=== PATIENT | male | born 1960 | race Two or more races ===

== ENCOUNTER 2018-12-31 00:27 | Inpatient (IN) | payer BC ==
[~2018-12-31] VITALS: Ht 170.2 cm; Wt 90.2 kg
[2018-12-31] MEDS ORDERED: HYDR25TA6 PO (04:45)
[2018-12-31] MEDS ORDERED: LOSA50TA14 PO (04:48)
[2018-12-31] MEDS ORDERED: LEVO25TA PO (04:48)
[2018-12-31 04:49] VITALS: Ht 170.2 cm; Wt 90.2 kg
[2018-12-31 05:00] VITALS: BP 145/78; PULSE 87; RESP 20
[2018-12-31] MEDS: SOD CHLORIDE 0.9% 1,000 ML IV SCH ×3 (06:55→23:31)
[2018-12-31] MEDS: PANTOPRAZOLE (EC) 40 MG TAB PO SCH (06:57)
[2018-12-31] MEDS: LEVOTHYROXINE 25 MCG TAB PO SCH ×2 (07:00→09:01)
[2018-12-31 07:45] VITALS: BP 119/67; PULSE 71; RESP 20
[2018-12-31] MEDS ORDERED: LOSARTAN 50 MG TAB PO SCH (09:00)
[2018-12-31 13:16] VITALS: BP 116/63; PULSE 97; RESP 20
[2018-12-31] MEDS: ACETAMINOPHEN 325 MG TAB PO PRN ×2 (15:07→22:10)
--- NOTE | 2018-12-31 16:43 | QN ---
Documentation Comment seen and examined MARLY DONAHUE MD Dec 31, 2018 16:43
[2018-12-31] MEDS ORDERED: traMADol 50 MG TAB PO PRN (17:00)
[2018-12-31] MEDS ORDERED: hydrALAzine 20 MG INJ IV PRN (17:00)
--- NOTE | 2018-12-31 17:41 | HP ---
DATE OF ADMISSION: 12/31/2018 REASON FOR ADMISSION: Transferred from [facility] secondary to OZIEL. HISTORY OF PRESENTING ILLNESS: This is a 58-year-old male with past medical history of hypertension, history of hypothyroidism, history of TURP, who presented to the emergency department at [facility] on 12/30/2018 secondary to complaining of cough, feeling weak, muscle pain for the last few weeks. According to the patient, his history dates back in 11/13/2018. Since then, he was having some fever, sore throat, body aches. He thought he had some viral illness. He was taking Motrin 400 mg q.6 hours. He took that for 2 weeks. After that, his symptoms subsided. He thought that he got better, but then he started having symptoms again of fever, cold, sore throat. He started taking qlcl-rdx-vbeixnq cough decongestants. Then, it was a setback after he found out that one of his friends was diagnosed with Hodgkin's lymphoma. He started fasting for spiritual reason for about 1 week. He said that he was having adequate water intake, but he was not eating anything at all. However, the patient said that when his fasting was done he felt that he was having body aches, muscle aches, throat pain, which made him come to the emergency department at [place] for further evaluation. The patient denied urinary complaints. The patient denied any headache, any chest pain, any shortness of breath currently. Denied any hematuria. Denies any BPH symptoms. On arrival to ED at [facility], temperature 36.6, blood pressure 136/86. The patient was found to have a UA that showed trace ketones. Influenza A and B were negative. His white count was 2.7, hemoglobin 14.4, platelet count 134. He also had glucose of 115, sodium 130, BUN of 14, creatinine 1.66. ALT of 97, AST of 68, alkaline phosphatase 128, bilirubin 1.3. CK 81. The patient was transferred due to insurance reasons. PAST MEDICAL HISTORY: 1. Hypertension. 2. Hypothyroidism. ALLERGIES: NONE. MEDICATIONS TAKING AT HOME: 1. Hydrochlorothiazide 25. 2. Losartan 50. 3. Levothyroxine 25. PAST SURGICAL HISTORY: Significant for appendectomy, TURP. SOCIAL HISTORY: The patient is an ex-smoker. The patient occasionally drinks alcohol, also uses pot occasionally. 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 FAMILY HISTORY: Noncontributory. REVIEW OF SYSTEMS: The patient had complained of generalized body ache, muscle aches, which had been somewhat improving, had cough over the last 2 months which had been improving. Denied any headache, any chest pain, any shortness of breath. Denies any BPH symptoms, any hematuria. PHYSICAL EXAMINATION: VITAL SIGNS: Currently temperature 97.9, pulse 97, respirations 20, blood pressure 116/63 Gen: Awake,alert and oriented Neck: supple , no meningsmus signs CVS: Regular rate and rthym Resp: CTAB Abdomen: soft, non tender Ext no edema vitiligo. tone of muscles and strength normal LABORATORY DATA: White count 2.1, hemoglobin 13.6, platelet count 131. BUN of 22, creatinine 1.51, glucose 98, calcium 8.9. ASSESSMENT AND PLAN: This is a 58-year-old male who presented with: 1. Acute kidney injury, unknown baseline. The patient denies any history of prior kidney disease in the past. The patient was taking Advil for almost 2 weeks plus starvation plus was taking hydrochlorothiazide and losartan at home. It could be secondary to prerenal/renal. 2. Leukopenia and thrombocytopenia, rule out viral syndrome. vs Autoimmune vs malignancy 3. Abnormal liver function tests with elevated total bilirubin, ALT, AST and alkaline phosphatase, could be secondary to viral syndrome. 4. Hypertension. 5. Hypothyroidism. PLAN: At this period of time, the patient is admitted to med-surg. CK levels were checked that were normal. We will also check for aldolase, UA. We will also check for hepatitis and HIV. We will also call hematology consultation. Rest of the treatment will depend on the patient's hospitalization course. Dictated By: MARLY KLEIN/EVAN Conf#: [id number] DID#: [id number] CC: ARNOLD GONZALEZ MD;*EndCC* MTDD
[2018-12-31 19:42] VITALS: BP 118/71; PULSE 88; RESP 18
[2019-01-01 01:31] VITALS: BP 118/67; PULSE 80; RESP 18
[2019-01-01] MEDS: PANTOPRAZOLE (EC) 40 MG TAB PO SCH (06:37)
[2019-01-01] MEDS: LEVOTHYROXINE 25 MCG TAB PO SCH (06:37)
[2019-01-01 07:47] VITALS: BP 120/73; PULSE 98; RESP 16
[2019-01-01] MEDS: SOD CHLORIDE 0.9% 1,000 ML IV SCH ×3 (09:10→22:30)
[2019-01-01] MEDS: ACETAMINOPHEN 325 MG TAB PO PRN ×2 (11:06→20:32)
--- NOTE | 2019-01-01 13:51 | CONS ---
Assessment/Plan Assessment/Plan Hospital Course (Demo Recall) * 58 yo who is relatively healthy who we are asked to see for leukopenia and thormbocytopenia * -he has vitiligo and the leukopenia and thrombocytopenia may be an autoimmune related process * check ASMITA, RF, B12, iron studies * check SPEP * check flow cytometry * -neutropenic precautions * request outpt records cbc for comparison * Hep B/C HIV negative * consideration of bone marrow if above w/u negative Consultation Date/Type/Reason Admit Date/Time Dec 31, 2018 at 04:24 Date/Time of Note DATE: 01/01/19 TIME: 13:48 Hx of Present Illness 58-year-old male with past medical history of hypertension, history of hypothyroidism, history of TURP, came to ER at [facility] with cough and weakness. Of note he was taking large amounts of Motrin. He thought he had some viral illness. He was taking Motrin 400 mg q.6 hours. He took that for 2 weeks. After that, his symptoms subsided. He rece'nuzhat some bad news and started fasting for spiritual reasons for about 1 week. He said that he was having adequate water intake, but he was not eating anything at all. He started having body aches and sore throat and went to [facility] ER. Influenza A and B were negative. His white count was 2.7, hemoglobin 14.4, platelet count 134. He also had glucose of 115, sodium 130, BUN of 14, creatinine 1.66. ALT of 97, AST of 68, alkaline phosphatase 128, bilirubin 1.3. CK 81. The patient was transferred due to insurance reasons and is being seen by Dr Mistry. We are asked to see him for leukopenia and thrombocytopenia. We carey not have outpt labs for comparison. Pt believes his counts were basically "normal" He also has vitiligo which he has since age 5 Constitutional: no complaints, improved Eyes: no complaints Respiratory: no complaints Cardiovascular: no complaints Gastrointestinal: no complaints Genitourinary: no complaints Musculoskeletal: no complaints Skin: skin lesions Neurologic: no complaints Endocrine: no complaints Lymphatic: no complaints Psychological: no complaints, nl mood/affect Immunologic: no complaints Past Medical History Home Meds Reported Medications Losartan Potassium* (Losartan Potassium*) 50 Mg Tablet, 50 MG PO DAILY, TAB 12/31/18 Levothyroxine Sodium* (Synthroid*) 25 Mcg Tablet, 25 MCG PO BEFORE BREAKFAST, #30 TAB 12/31/18 Hydrochlorothiazide* (Hydrochlorothiazide*) 25 Mg Tab, 25 MG PO DAILY, #30 TAB 12/31/18 Medications Current Medications Sodium Chloride 1,000 ml @ 75 mls/hr [id number] IV Last administered on 12/31/18at 23:31; Admin Dose 75 MLS/HR; Start 12/31/18 at 06:30 Pantoprazole (Protonix Tab) 40 mg DAILY@06 PO Last administered on 01/01/19at 06:37; Admin Dose 40 MG; Start 12/31/18 at 06:00 Acetaminophen (Tylenol Tab) 650 mg Q6H PRN PO MILD PAIN(1-3)OR ELEVATED TEMP Last administered on 01/01/19at 11:06; Admin Dose 650 MG; Start 12/31/18 at 06:30 Levothyroxine Sodium (Synthroid) 25 mcg BEFORE BREAKFAST PO Last administered on 01/01/19at 06:37; Admin Dose 25 MCG; Start 12/31/18 at 07:00 Tramadol HCl (Ultram) 50 mg Q6H PRN PO MODERATE PAIN LEVEL 4-6; Start 12/31/18 at 17:00 Hydralazine HCl (Apresoline) 5 mg Q8H PRN IV SBP>160; Start 12/31/18 at 17:00 Allergies: Coded Allergies: No Known Allergy (Unverified , 12/31/18) Social History Smoking Status: Former smoker Exam/Review of Systems Exam Vitals Vital Signs Date Temp Pulse Resp B/P (MAP) Pulse Ox O2 O2 Flow FiO2 Time Delivery Rate 01/01/19 98.8 98 16 120/73 99 07:47 (89) 12/31/18 Room Air 05:00 Intake and Output 12/31/18 12/31/18 01/01/19 1515:00 23:00 07:00 IntakeIntake Total 960 ml 450 ml 950 ml OutputOutput Total 350 ml BalanceBalance 610 ml 450 ml 950 ml Constitutional: alert, oriented, well developed Psych: no complaints, nl mood/affect Head: normocephalic, atraumatic Eyes: nl conjunctiva, EOMI, nl lids, nl sclera, PERRL Skin: other (vitiligo) Results Result Diagram: 12/31/18 0718 01/01/19 0451 Results 24hrs Laboratory Tests Test 12/31/18 17:23 01/01/19 04:51 01/01/19 08:45 Erythrocyte Sedimentation Rate 26 H Sodium Level 137 Potassium Level 4.0 Chloride Level 101 Carbon Dioxide Level 28 Anion Gap 8 Blood Urea Nitrogen 17 Creatinine 0.94 Est Glomerular Filtrat Rate mL/min > 60 Glucose Level 111 Calcium Level 8.7 Urine Color YELLOW Urine Clarity CLEAR Urine pH 6.0 Urine Specific [place] 1.011 Urine Ketones NEGATIVE Urine Nitrite NEGATIVE Urine Bilirubin NEGATIVE Urine Urobilinogen NEGATIVE Urine Leukocyte Esterase NEGATIVE Urine Hemoglobin NEGATIVE Urine Glucose 1+ H Urine Total Protein NEGATIVE Urine Opiates Screen Negative Urine Barbiturates Negative Urine Amphetamines Screen Negative Urine Benzodiazepines Screen Negative Urine Cocaine Screen Negative Urine Cannabinoids Negative Medications Medication Current Medications Sodium Chloride 1,000 ml @ 75 mls/hr [id number] IV Last administered on 12/31/18at 23:31; Admin Dose 75 MLS/HR; Start 12/31/18 at 06:30 Pantoprazole (Protonix Tab) 40 mg DAILY@06 PO Last administered on 01/01/19at 06:37; Admin Dose 40 MG; Start 12/31/18 at 06:00 Acetaminophen (Tylenol Tab) 650 mg Q6H PRN PO MILD PAIN(1-3)OR ELEVATED TEMP Last administered on 01/01/19at 11:06; Admin Dose 650 MG; Start 12/31/18 at 06:30 Levothyroxine Sodium (Synthroid) 25 mcg BEFORE BREAKFAST PO Last administered on 01/01/19at 06:37; Admin Dose 25 MCG; Start 12/31/18 at 07:00 Tramadol HCl (Ultram) 50 mg Q6H PRN PO MODERATE PAIN LEVEL 4-6; Start 12/31/18 at 17:00 Hydralazine HCl (Apresoline) 5 mg Q8H PRN IV SBP>160; Start 12/31/18 at 17:00 ROSSY MURO 20, 2019 13:51
[2019-01-01 14:22] VITALS: BP 132/79; PULSE 99; RESP 16
--- NOTE | 2019-01-01 14:26 | PN ---
Date/Time of Note Date/Time of Note DATE: 01/01/19 TIME: 14:20 Assessment/Plan VTE Prophylaxis Risk score (from Ns)>0 risk: 1 SCD applied (from Ns): No SCD contraindicated: low risk/ambulating Pharmacological prophylaxis: NA/contraindicated Pharm contraindication: low risk/ambulating Lines/Catheters IV [facility]from [facility] Peripheral IV Urinary Cath still in place: No Assessment/Plan Assessment/Plan ASSESSMENT AND PLAN: This is a 58-year-old male who presented with: 1. Acute kidney injury, unknown baseline. The patient denies any history of prior kidney disease in the past. The patient was taking Advil for almost 2 weeks plus starvation plus was taking hydrochlorothiazide and losartan at home. It could be secondary to prerenal/renal. Likely prerenal resolved 2. Leukopenia and thrombocytopenia, rule out viral syndrome. Versus autoimmune versus malignancy 3. Abnormal liver function tests with elevated total bilirubin, ALT, AST and alkaline phosphatase, could be secondary to viral syndrome. 4. Hypertension. 5. Hypothyroidism. PLAN -Abdominal ultrasound shows some splenomegaly -EBV influenza a and B and sent -HIV/hepatitis panel negative -Kidney function is back to baseline -Follow-up with rheumatological workup -Pending heme consult - CW Iv Fluids Result Diagram: 12/31/18 0718 01/01/19 0451 Results 24hrs Laboratory Tests Test 12/31/18 17:23 01/01/19 04:51 01/01/19 08:45 Erythrocyte Sedimentation Rate 26 H Sodium Level 137 Potassium Level 4.0 Chloride Level 101 Carbon Dioxide Level 28 Anion Gap 8 Blood Urea Nitrogen 17 Creatinine 0.94 Est Glomerular Filtrat Rate mL/min > 60 Glucose Level 111 Calcium Level 8.7 Urine Color YELLOW Urine Clarity CLEAR Urine pH 6.0 Urine Specific Stewart 1.011 Urine Ketones NEGATIVE Urine Nitrite NEGATIVE Urine Bilirubin NEGATIVE Urine Urobilinogen NEGATIVE Urine Leukocyte Esterase NEGATIVE Urine Hemoglobin NEGATIVE Urine Glucose 1+ H Urine Total Protein NEGATIVE Urine Opiates Screen Negative Urine Barbiturates Negative Urine Amphetamines Screen Negative Urine Benzodiazepines Screen Negative Urine Cocaine Screen Negative Urine Cannabinoids Negative Subjective 24 Hr Interval Summary Free Text/Dictation Patient complaining of headaches. he did complain of pain in the bilateral lower extremities Exam/Review of Systems Exam Vitals Vital Signs Date Temp Pulse Resp B/P (MAP) Pulse Ox O2 O2 Flow FiO2 Time Delivery Rate 01/01/19 98.8 98 16 120/73 99 07:47 (89) 12/31/18 Room Air 05:00 Intake and Output 12/31/18 12/31/18 01/01/19 1515:00 23:00 07:00 IntakeIntake Total 960 ml 450 ml 950 ml OutputOutput Total 350 ml BalanceBalance 610 ml 450 ml 950 ml Exam General patient is awake alert oriented Neck supple no JVD, no mengeal signs Lungs clear to auscultate bilaterally Heart regular rate rhythm no murmur rub or gallop Abdomen soft nontender nondistended Results Results 24hrs Laboratory Tests Test 12/31/18 17:23 01/01/19 04:51 01/01/19 08:45 Erythrocyte Sedimentation Rate 26 H Sodium Level 137 Potassium Level 4.0 Chloride Level 101 Carbon Dioxide Level 28 Anion Gap 8 Blood Urea Nitrogen 17 Creatinine 0.94 Est Glomerular Filtrat Rate mL/min > 60 Glucose Level 111 Calcium Level 8.7 Urine Color YELLOW Urine Clarity CLEAR Urine pH 6.0 Urine Specific Stewart 1.011 Urine Ketones NEGATIVE Urine Nitrite NEGATIVE Urine Bilirubin NEGATIVE Urine Urobilinogen NEGATIVE Urine Leukocyte Esterase NEGATIVE Urine Hemoglobin NEGATIVE Urine Glucose 1+ H Urine Total Protein NEGATIVE Urine Opiates Screen Negative Urine Barbiturates Negative Urine Amphetamines Screen Negative Urine Benzodiazepines Screen Negative Urine Cocaine Screen Negative Urine Cannabinoids Negative Medications Medication Current Medications Sodium Chloride 1,000 ml @ 75 mls/hr [id number] IV Last administered on 12/31/18at 23:31; Admin Dose 75 MLS/HR; Start 12/31/18 at 06:30 Pantoprazole (Protonix Tab) 40 mg DAILY@06 PO Last administered on 01/01/19at 06:37; Admin Dose 40 MG; Start 12/31/18 at 06:00 Acetaminophen (Tylenol Tab) 650 mg Q6H PRN PO MILD PAIN(1-3)OR ELEVATED TEMP Last administered on 01/01/19at 11:06; Admin Dose 650 MG; Start 12/31/18 at 06:30 Levothyroxine Sodium (Synthroid) 25 mcg BEFORE BREAKFAST PO Last administered on 01/01/19at 06:37; Admin Dose 25 MCG; Start 12/31/18 at 07:00 Tramadol HCl (Ultram) 50 mg Q6H PRN PO MODERATE PAIN LEVEL 4-6; Start 12/31/18 at 17:00 Hydralazine HCl (Apresoline) 5 mg Q8H PRN IV SBP>160; Start 12/31/18 at 17:00 MARLY DONAHUE MD Jan 01, 2019 14:26
[2019-01-01 19:51] VITALS: BP 132/76; PULSE 94; RESP 18
[2019-01-02 01:12] VITALS: BP 115/65; PULSE 91; RESP 18
[2019-01-02] MEDS: LEVOTHYROXINE 25 MCG TAB PO SCH (06:19)
[2019-01-02] MEDS: PANTOPRAZOLE (EC) 40 MG TAB PO SCH (06:20)
[2019-01-02] MEDS: SOD CHLORIDE 0.9% 1,000 ML IV SCH (06:21)
[2019-01-02 07:46] VITALS: BP 125/65; PULSE 74; RESP 18
[2019-01-02] MEDS: ACETAMINOPHEN 325 MG TAB PO PRN (12:15)
[2019-01-02 13:04] VITALS: BP 108/64; PULSE 87; RESP 18
--- NOTE | 2019-01-02 13:33 | CONS ---
Assessment/Plan Assessment/Plan Hospital Course (Demo Recall) #Pancytopenia -patients CBC appears to be improving -vitamin b12 is low at 209 which may be a contributing factor to the pancytopenia. will start Vitamin b12 1000mcg q day x 7 days then q week x 1 mo then q month there after -start folic acid 1 mg q day -pt is noted to have an elevated ESR AND CRP which may be from an underlying viral illness. this may also be a contributing factor to his pancytopenia -HIV and Hepatitis panel are negative -need to follow up SPEP, ASMITA, RF, FLow cytometry -iron studies are ok #OZIEL -Cr now normal. may be from excessive motron use #Transaminitis -maybe from viral syndrome. continue to monitor #HTN -continue current management Thank you for the opportunity to participate in this patients care A total of 40 minutes of face to face time was spent speaking with the patient, of which greater than 50% was spent in counseling and coordination of care and the detailed question and answer session. Consultation Date/Type/Reason Admit Date/Time Dec 31, 2018 at 04:24 Initial Consult Date 01/02/19 Type of Consult hematology Reason for Consultation pancytopenia Requesting Provider: MARLY DONAHUE MD Date/Time of Note DATE: 01/02/19 TIME: 13:26 24 HR Interval Summary Free Text/Dictation no fevers overnight. platelets and WBC are better today Exam/Review of Systems Exam Vitals Vital Signs Date Temp Pulse Resp B/P (MAP) Pulse Ox O2 O2 Flow FiO2 Time Delivery Rate 01/02/19 98.9 87 18 108/64 99 Room Air 13:04 (79) Intake and Output 01/01/19 01/01/19 01/02/19 1515:00 23:00 07:00 IntakeIntake Total 1590 ml 720 ml 800 ml BalanceBalance 1590 ml 720 ml 800 ml Constitutional: alert, oriented Psych: no complaints Head: normocephalic Eyes: nl conjunctiva ENMT: nl external ears & nose Neck: supple Respiratory: clear to auscultation Cardiovascular: regular rate and rhythm Gastrointestinal: soft Musculoskeletal: nl extremities to inspection Extremities: normal pulses 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 Skin: nl turgor Results Result Diagram: 01/02/19 0434 01/02/19 0438 Results 24hrs Laboratory Tests Test 01/01/19 14:31 01/02/19 04:34 01/02/19 04:38 Iron Level 62 Total Iron Binding Capacity 322 Percent Iron Saturation 19 L Ferritin 86.5 Vitamin B12 Level 209 L Folate 10.1 White Blood Count 2.6 #L Red Blood Count 4.03 L Hemoglobin 11.9 L Hematocrit 35.6 L Mean Corpuscular Volume 88.3 Mean Corpuscular Hemoglobin 29.5 Mean Corpuscular Hemoglobin Concent 33.4 Red Cell Distribution Width 12.6 Platelet Count 152 Mean Platelet Volume 10.6 H Immature Granulocytes % 0.800 H Neutrophils % 54.3 Lymphocytes % 33.6 Monocytes % 10.5 Eosinophils % 0.4 Basophils % 0.4 Nucleated Red Blood Cells % 0.0 Immature Granulocytes # 0.020 Neutrophils # 1.4 L Lymphocytes # 0.9 Monocytes # 0.3 Eosinophils # 0.0 Basophils # 0.0 Nucleated Red Blood Cells # 0.0 Sodium Level 139 Potassium Level 4.2 Chloride Level 107 Carbon Dioxide Level 26 Anion Gap 6 Blood Urea Nitrogen 16 Creatinine 0.97 Est Glomerular Filtrat Rate mL/min > 60 Glucose Level 99 Calcium Level 8.8 Total Bilirubin 0.5 Direct Bilirubin 0.00 Indirect Bilirubin 0.5 Aspartate Amino Transf (AST/SGOT) 48 H Alanine Aminotransferase (ALT/SGPT) 86 H Alkaline Phosphatase 125 H Total Protein 6.2 Albumin 3.3 Globulin 2.90 Albumin/Globulin Ratio 1.13 Medications Medication Current Medications Sodium Chloride 1,000 ml @ 75 mls/hr [id number] IV Last administered on 01/02/19at 06:21; Admin Dose 75 MLS/HR; Start 12/31/18 at 06:30 Pantoprazole (Protonix Tab) 40 mg DAILY@06 PO Last administered on 01/02/19at 06:20; Admin Dose 40 MG; Start 12/31/18 at 06:00 Acetaminophen (Tylenol Tab) 650 mg Q6H PRN PO MILD PAIN(1-3)OR ELEVATED TEMP Last administered on 01/02/19at 12:15; Admin Dose 650 MG; Start 12/31/18 at 06:30 Levothyroxine Sodium (Synthroid) 25 mcg BEFORE BREAKFAST PO Last administered on 01/02/19at 06:19; Admin Dose 25 MCG; Start 12/31/18 at 07:00 Tramadol HCl (Ultram) 50 mg Q6H PRN PO MODERATE PAIN LEVEL 4-6; Start 12/31/18 at 17:00 Hydralazine HCl (Apresoline) 5 mg Q8H PRN IV SBP>160; Start 12/31/18 at 17:00 DANIEL PEDERSON M.D. Jan 02, 2019 13:33
[2019-01-02] MEDS ORDERED: CYAN100080 PO (14:18)
--- NOTE | 2019-01-02 14:18 | PDOCDIS ---
Discharge Instructions DIAGNOSIS Discharge Diagnosis Possible viral syndrome. Leukopenia thrombocytopenia b12 def CONDITION [id number] Patient Condition: Rquia0z Fair HOME CARE INSTRUCTIONS: [id number] Diet Instructions: [id number] Low Fat /Cholesterol ACTIVITY: [id number] Activity Restrictions: [id number] Slowly Increase Activity Rest between Activity Avoid heavy lifting FOLLOW UP/APPOINTMENTS Follow-up Plan Follow-up with the PCP 1-2 weeks f[address] up with Dr. Singleton in 2-3 weeks MARLY DONAHUE MD Jan 02, 2019 14:18
--- NOTE | 2019-01-02 15:42 | CONS ---
DATE OF ADMISSION: 12/31/2018 DATE OF CONSULTATION: TYPE OF CONSULTATION: Rheumatology. REQUESTING PHYSICIAN: Catie Mistry MD REASON FOR CONSULT: Myalgias, muscle pain. HISTORY OF PRESENT ILLNESS: The patient is a 58-year-old male with history of hypertension, hypothyr oidism, history of TURP, who came to the emergency room at [facility] with a history o f cough and weakness. He said his initial symptoms flu-like symptoms started about a month and a andie f prior to admission and he took some ummh-zdh-iqewinz medications and everything resolved and then a ll of a sudden, it returned with robust fever and bodyaches. He had fasted for a week, only drinking water from sunrise to sunset and he felt that symptoms then worsened. He became weaker with a gener al dull achiness and burning pain, feeling lightheaded with a headache. He said he was taking adequa te water during the fasting period but not really eating. When he presented at [facility] ER, influenza A and B were negative. His white count however was 2.7, hemoglobin 14.4 and plate let count of 134,000. Also, glucose was normal. He was hyponatremic at sodium of 130, BUN 14, creat inine 1.66, ALT of 97, AST 68, alkaline phosphatase 128, bilirubin 1.3, CK was 81 of note which is no rmal. The patient was transferred to [facility] due to insurance reasons on 12/31/2018 and also hematology was consulted on the patient yesterday. We do not have any previous labs for compari son, although the patient states he thinks that his labs were previously normal. PAST MEDICAL HISTORY: As stated above, hypertension, history of TURP and hypothyroidism. ALLERGIES: NO KNOWN DRUG ALLERGIES. SOCIAL HISTORY: Former smoker. He does smoke some pot. He does drink moderate amount of alcohol. MEDICATIONS: Currently include: 1. Tramadol p.r.n. 2. Synthroid 25 mcg. 3. Tylenol p.r.n. PHYSICAL EXAMINATION: VITAL SIGNS: Temperature 98.9, pulse 87, respirations 18, BP 108/64, pulse ox 99 on room air. GENERAL: Alert and oriented, pleasant male. HEENT: NC/AT. Extraocular movements are intact. No oral lesions. NECK: Supple. No JVD. LUNGS: Clear to auscultation bilaterally. HEART: Regular rate and rhythm. ABDOMEN: Soft, nontender, nondistended. SKIN: He does have a diffuse vitiligo. MUSCULOSKELETAL: No joint effusion, no joint pain. All joints with normal range of motion and intac t. LABORATORY VALUES: White count 2.6, hemoglobin 11.9, hematocrit 35.6, platelet count 152. ESR is 26 . Sodium 139, potassium 4.2, chloride 107, bicarbonate 26, BUN 16, creatinine 0.97, glucose 99, calc ium 8.8. Ferritin is 86.5. Total bilirubin 0.5, direct bilirubin 0, indirect bilirubin 0.5, AST 48, ALT 86, alkaline phosphatase 125. C-reactive protein is 2. Total protein 6.2, albumin 3.3, globuli n 2.9. B12 is 209. Folate 10.1. Hepatitis A IgM antibody nonreactive, hep B surface antigen negati ve, hep B core negative, hep C antibody negative, HIV 1 and 2 antibody negative. DIAGNOSTIC DATA: Chest x-ray: Within normal limits, negative. Abdominal ultrasound shows borderlin e splenomegaly without focal splenic lesions, contracted gallbladder; otherwise unremarkable liver, p ancreas and kidneys, no evidence of aneurysm involving proximal mid abdominal aorta. IMPRESSION AND PLAN: This is a 58-year-old male with history of hypertension, hypothyroidism and TUR P, presenting with generalized myalgias and more significantly somewhat of pancytopenia with persiste nt leukopenia and anemia of unknown etiology. Hematology is following the patient and some lab work was sent including an ASMITA and rheumatoid factor as well as other labs that are pertaining to hematolo gy including protein electrophoresis, Phyllis-Villarreal and aldolase as the patient also has elevated AST and ALT. 1. Pancytopenia unlikely related to autoimmune diseases as the ESR is low. Vitiligo is not really a ssociated with other autoimmune diseases. It does generally occur in isolation as autoimmune disease is only skin deep. However, we will follow the labs that have been sent. 2. Elevated LFTs. I agree with aldolase and possibly GI consult if necessary. However, the patient probably needs screening test of colonoscopy and endoscopy as an outpatient. I would like to thank Dr. Mistry for having me participate in this patient's care. Please do not hes itate to call with further questions or concerns. Dictated By: KAVITA SHEPARD/EVAN Conf#: [id number] DID#: [id number] CC: PRANAY GILLIS MD; ARNOLD GONZALEZ MD;*End*
--- NOTE | 2019-01-03 03:08 | DS ---
DATE OF ADMISSION: 12/31/2018 DATE OF DISCHARGE: 01/02/2019 HISTORY OF PRESENT ILLNESS AND HOSPITAL COURSE: This is a 58-year-old male with a past medical histo ry of hypertension and hypothyroidism, who presented to emergency department [facility] to complaint of a cough, feeling weak, and muscle pain for the last few weeks. According to th e patient, on November 13, 2018, he has had fever, sore throat, and body aches. He thought he had michael e viral illness and took Motrin around the clock and took it for a few weeks. The symptoms subsided. He thought it is getting better, then he started having symptoms again, however was taking over-the -counter decongestants. His friend was diagnosed with cancer and he was fasting for 1 week. He did not have water intake. He denied any urinary complaints. He came to the emergency department at [facility] and was found to have UA that showed straight ketones. Influenza A and B were negat krzysztof. White count was 2.7, hemoglobin 14.4, platelet count 134, BUN of 14, creatinine 1.6, ALT of 97, AST 68, alkaline phosphatase 128, bilirubin 1.3, CK levels 81. He was transferred due to insurance reasons. The patient had a UA that was also negative. The patient was treated with IV hydration. T he hydrochlorothiazide and Losartan was also held. The patient was also found to be leukopenic and t hrombocytopenic. White count was 2.1, platelet count was 131. U-tox was checked that was negative. The patient also had hepatitis panel checked, HIV checked that was negative. ASMITA, rheumatoid factor , SPEP, vitamin B12, iron were sent. The patient was seen by hematology consultation and recommendat ions were followed. The patient was also noted to be Vitamin B12 deficient and was started on Vitami n B12 p.o. and also folic acid. The patient was also seen by rheumatology consultation. Currently, the patient is feeling much better. Creatinine improved to baseline at 0.97. The patient is feeling much better and is stable to be discharged home. The patient will follow up with Dr. Singleton in 2 to 3 weeks for the followup on the labs. FINAL DISCHARGE DIAGNOSES: 1. Acute kidney injury, likely secondary to prerenal dehydration. NSAIDs with the use of hydrochlor othiazide and losartan. 2. Pancytopenia. 3. Need to follow up with SPEP, ASMITA, rheumatoid factor, flow cytometry, HIV, hepatitis panel negativ e. 4. Transaminitis, may be from viral syndrome. 5. Hypertension. DISCHARGE CONDITION: Stable. DISCHARGE DIET: Regular diet. DISCHARGE MEDICATIONS: 1. Vitamin B12 at 1000 mcg daily for 7 days, then q. weekly for 1 month, then q. monthly and for 1 m onth supply. 2. Folic acid 1 mg p.o. every day. The patient was instructed to continue with home medications based on her blood pressures at home [facility] were hydrochlorothiazide 25 and Losartan 50. Continue with Synthroid 25. Dictated By: MARLY KLEIN/EVAN Conf#: [id number] DID#: [id number] CC: ARNOLD GONZALEZ MD;*End*
[2019-01-03] MEDS ORDERED: CYANOCOBALAMIN 1000 MCG INJ IM SCH (09:00)
== END 2019-01-02 17:50 | disposition home or self-care (01) | DRG 683 ==
LOC: 2NE 04:24
PROVIDERS: ADMIT Internal Medicine Nephrology; ATTEND Internal Medicine Nephrology
DX: N17.9 Acute kidney failure, unspecified (principal); D61.818 Other pancytopenia; I10 Essential (primary) hypertension; E03.9 Hypothyroidism, unspecified; L80 Vitiligo; E86.0 Dehydration; R74.0 Nonspecific elevation of levels of transaminase and lactic acid dehydrogenase [LDH]; Z87.891 Personal history of nicotine dependence
CPT/HCPCS: 76700; 80048; 80053; 80307; 81003; 82085; 82550; 82607; 82728; 82746; 83540; 84155; 84165; 85025; 85651; 86022; 86038; 86140; 86430; 86664; 86703; 86704; 86709; 86803; 87340; 87400; J7030